=== PATIENT | male | born 1940 ===

== ENCOUNTER → 2018-12-10 14:06 | Outpatient (REF) | payer MEDICARE, MEDICAID, SELFPAY ==
[2018-12-10 14:37] LABS: Alanine Aminotransferase 31 IU/L (21-72); Albumin 3.9 g/dL (3.5-5.0); Albumin Globulin Ratio 1.6 (1.0-2.8); Alkaline Phosphatase 47 U/L (38-126); Aspartate Aminotransferase 18 IU/L (17-59); BUN Creatinine Ratio 15.8 (6-22); Bilirubin Total 0.4 mg/dL (0.2-1.3); Blood Urea Nitrogen 19 mg/dL (9-20); Calcium 9.1 mg/dL (8.4-10.2); Carbon Dioxide 26 mmol/L (22-32); Chloride 104 mmol/L (98-107); Cholesterol 137 mg/dL (140-199); Estimated Glomerular Filt Rate 58.3 mL/min (>60); Globulin 2.5 g/dL (1.7-4.1); Glucose 92 mg/dL (80-110); HDL Cholesterol 39 mg/dL (40-60); HEMOLYSIS < 15 (0-50); LDL Cholesterol Calculated 63 mg/dL (<100); Potassium 4.2 mmol/L (3.4-5.1); Sodium 139 mmol/L (137-145); Total Protein 6.4 g/dL (6.3-8.2); Triglycerides 177 mg/dL (35-150)
[2018-12-10 14:56] LABS: Hemoglobin A1C% w Est Avg Glu 5.8 % (4.0-6.0)
== END ==
LOC: LAB 14:06
PROVIDERS: Visit Provider Internal Medicine Geriatric Medicine
DX: R73.01 Impaired fasting glucose (principal); E78.00 Pure hypercholesterolemia, unspecified; Z86.73 Personal history of transient ischemic attack (TIA), and cerebral infarction without residual deficits
CPT/HCPCS: 36415; 80053; 80061; 83036